=== PATIENT | female | born 1990 | race African-American/Black ===

== ENCOUNTER 2019-09-04 09:07 | Day surgery (SDC) | payer BC, OTHER ==
[2019-09-04 10:00] VITALS: BMI 23.8
--- NOTE | 2019-09-04 10:08 | HP ---
CHIEF COMPLAINT: Here for left foot surgery w/ Dr Qiu--> Bunionectomy with arthroplasty toes 2 and 3. PCP: none HISTORY OF PRESENT ILLNESS: Pt is a 29 y/o f with no past medical history who presents to [facility] for left foot surgery with Dr Qiu. Pt endorses feeling well and denies any health issues at this juncture. PMH none SocialHx- Denies tobacco/Alcohol/or illicit drug use SurgHx- Denies Family History- Mother Lung Cancer [facility] HOME MEDICATIONS: REVIEW OF SYSTEMS CONSTITUTIONAL: Absent: fever, chills, diaphoresis, generalized weakness, malaise, loss of appetite, weight change HEENT: Absent: rhinorrhea, nasal congestion, throat pain, throat swelling, difficulty swallowing, mouth swelling, ear pain, eye pain, visual changes CARDIOVASCULAR: Absent: chest pain, syncope, palpitations, irregular heart rate, lightheadedness , peripheral edema RESPIRATORY: Absent: cough, shortness of breath, dyspnea with exertion, orthopnea, wheezing, stridor, hemoptysis GASTROINTESTINAL: Absent: abdominal pain, abdominal distension, nausea, vomiting, diarrhea, constipation, melena, hematochezia GENITOURINARY: Absent: dysuria, frequency, urgency, hesitancy, hematuria, flank pain, genital pain MUSCULOSKELETAL: Absent: myalgia, arthralgia, joint swelling, back pain, neck pain SKIN: Absent: rash, itching, pallor HEMATOLOGIC/IMMUNOLOGIC: Absent: easy bleeding, easy bruising, lymphadenopathy, frequent infections ENDOCRINE: Absent: unexplained weight gain, unexplained weight loss, heat intolerance, cold intolerance NEUROLOGIC: Absent: headache, focal weakness or paresthesias, dizziness, unsteady gait, seizure, mental status changes, bladder or bowel incontinence PSYCHIATRIC: Absent: anxiety, depression, suicidal or homicidal ideation, hallucinations. PHYSICAL EXAMINATION GENERAL: AAOx3 NAD HEAD: Normal with no signs of trauma. EYES: EOMI, Sclera Clear EARS, NOSE, THROAT: MMM NECK: Supple LUNGS:CTA b/l HEART: RRR S1S2 ABDOMEN: Soft NDNT MUSCULOSKELETAL: FROM throughout LOWER EXTREMITIES: DP 2+ bilaterally. Bunion left foot large toe. Hammertoes left foot digits 2,3,4,5. NEUROLOGICAL: Cranial nerves II-XII intact. Normal speech. PSYCHIATRIC: Cooperative. Good eye contact. Appropriate mood and affect. SKIN: Warm, dry, normal turgor, no rashes or lesions noted, normal capillary refill. ASSESSMENT/PLAN: Pt is a 29 y/o f with no past medical history who presents to [facility] for left foot surgery with Dr Qiu. Pt will undergo above stated surgery with Dr Qiu today. All labs/imaging ordered per Dr Qiu. Will follow patient per surgery request if needed. Visit type - Emergency Visit Emergency Visit: No - New Patient This patient is new to me today: Yes Date on this admission: 09/04/19 - Critical Care Critical Care patient: No
--- NOTE | 2019-09-04 10:27 | PN ---
Teaching Attending Note Name of Resident: Davie Barney ATTENDING PHYSICIAN STATEMENT I saw and evaluated the patient. I reviewed the resident's note and discussed the case with the resident. I agree with the resident's findings and plan as documented. SUBJECTIVE: This is a 29 year old woman with no significant medical history who presents today for left foot bunionectomy. OBJECTIVE: HEART: S1S2, RRR LUNGS: Clear ABDOMEN: Soft, non-tender, non-distended, normal BS EXTREMITIES: No edema, bunion left 1st toe Home Medications Medication Instructions Recorded Calcium Carbonate [Calcium] 500 mg PO DAILY 09/04/19 Ferrous Sulfate [Iron] 325 mg PO DAILY 09/04/19 ASSESSMENT AND PLAN: This is a healthy 29 year old woman with a bunion of her left 1st toe, scheduled to undergo bunionectomy with Dr. Qiu today.
[2019-09-04] MEDS ORDERED: DEXAMETHASONE SOD PHOSPHATE 4 MG/1 ML VIAL ONE (12:03)
[2019-09-04] MEDS ORDERED: PROPOFOL 20 ML ONE ×2 (12:03→12:07)
[2019-09-04] MEDS ORDERED: LIDOCAINE HCL 1%, 10 MG/ML (20ML VIAL) ONE (12:03)
[2019-09-04] MEDS ORDERED: ceFAZolin SODIUM 1 GM VIAL ONE ×2 (12:04→12:40)
[2019-09-04] MEDS ORDERED: MIDAZOLAM HCL 2 MG/2 ML SINGLE DOSE VIAL ONE ×4 (12:04→12:52)
[2019-09-04] MEDS ORDERED: BUPIVACAINE HCL/PF 0.5% (5 MG/ML) 30 ML VIAL IJ ONE ×5 (12:04→12:59)
[2019-09-04] MEDS ORDERED: BACITRACIN 50,000 UNITS VIAL NR ONE ×2 (12:17→12:59)
[2019-09-04] MEDS ORDERED: LIDOCAINE HCL 1%, 10 MG/ML (20ML VIAL) NR ONE ×3 (12:17→12:59)
[2019-09-04] MEDS ORDERED: DEXAMETHASONE SOD PHOSPHATE 4 MG/1 ML VIAL IVPUSH ONE ×3 (12:18→13:30)
[2019-09-04] MEDS ORDERED: ceFAZolin 2 GRAM PREMIX BAG IVPB ONE ×2 (12:41→12:59)
--- NOTE | 2019-09-04 15:48 | OP ---
Operative Note - Note: Operative Date: 09/04/19 Pre-Operative Diagnosis: Painful bunion left foot with hammer toes 2 & 3 left foot Operation: Modified kenney bunionectomy left foot. arthroplasty PIPJ left foot toes 2&3. arthroplasty DIPJ 2nd toe left foot Findings: hypertrophic bone and soft tissue Post-Operative Diagnosis: Same as Pre-op Surgeon: Mahesh Qiu Appellate Conferee: Mark Colindres Anesthesia: Local, MAC Specimens Removed: bone and soft tissue Estimated Blood Loss (mls): 5 Operative Report Dictated: No
[2019-09-04 16:18] VITALS: BP 120/61; PULSE 66; TEMP 97.7
--- NOTE | 2019-09-08 16:47 | PATH ---
Surgical Pathology Report Patient Name: MAINOR HERNANDEZ [facility]. Rec. #: [id number] /Age/Gender: 1990 (Age: 29) / F Account: [id number] Location: [facility] SURGICAL Taken: 09/04/2019 Received: 09/05/2019 Reported: 09/08/2019 Physicians: Mahesh Qiu DPM Specimen(s) Received BONE AND SKIN 2ND AND 3RD TOE LEFT FOOT Clinical History Bunion, hammertoe second and third digit left foot Final Diagnosis BONE AND SKIN SECOND AND THIRD TOE, LEFT FOOT, EXCISION: FRAGMENTS OF BONE WITH FATTY MARROW SHOWING FOCAL DEGENERATIVE CHANGE. SEPARATE FRAGMENTS OF SKIN WITH NO SIGNIFICANT PATHOLOGIC CHANGE. Electronically Signed Sesar Almonte M.D. Gross Description Received in formalin labeled "bone and skin second and third toe left foot," is a 2.8 x 2.0 x 0.3 cm aggregate of romero-yellow bone fragments and brown skin fragments. Jewelry [employer] Model Maker sections are submitted in one cassette, following decalcification. /09/05/[address] [facility]09/05/2019
--- NOTE | 2019-10-06 18:58 | OP ---
DATE OF OPERATION: 09/04/2019 PREOPERATIVE DIAGNOSIS: Painful bunion of the left foot with painful hammertoes 2 and 3, left foot. POSTOPERATIVE DIAGNOSIS: Painful bunion of the left foot with painful hammertoes 2 and 3, left foot. PROCEDURE PERFORMED: Modified Lim bunionectomy, left foot; arthroplasty of the proximal interphalangeal joint, left foot, toes 2 and 3; and arthroplasty of the distal interphalangeal joint of the 2nd toe, left foot. SURGEON: Mahesh Qiu DPM FRAME REPAIRER: Mark Colindres DPM DESCRIPTION OF PROCEDURE: After noting all preoperative vital signs were within normal limits and after the surgical consent was signed and witnessed, the patient was brought to the OR and placed on the table in the supine position. Once the patient was on the table, a well-padded ankle tourniquet was applied to the left ankle. Once the tourniquet was applied, the foot was anesthetized, after the patient had received sedation, in a Campos block fashion around the 1st, 2nd and 3rd metatarsophalangeal joints. Once the foot was anesthetized, it was then prepped and draped in the usual sterile fashion. The foot was then elevated and exsanguinated, and the tourniquet was elevated to 250 mmHg on the left ankle. At this time attention was directed to the left 1st metatarsophalangeal joint where a 6-cm long curvilinear incision was created. The incision was deepened using sharp and blunt dissection to the level of the joint capsule. All unavoidable vessels were ligated in the usual fashion. All other neurovascular structures were retracted out of the surgical site. At this time, an inverted-L incision was created over the 1st metatarsophalangeal joint, exposing the dorsomedial eminence. All soft tissue was then liberated from the dorsal, medial and plantar aspects of the 1st metatarsophalangeal joint. A McGlamry elevator was passed to the plantar aspect to free up the sesamoids. The toe was noted to have good range of motion once this was done. Utilizing a sagittal saw, the dorsomedial eminence was resected and sent down to Pathology. The area was palpated and no remaining spicules were noted. The toe was put through a range of motion and noted to be in excellent alignment , with excellent range of motion. A flush was then done with copiously amounts of sterile saline. Utilizing 2-0 Vicryl in a simple interrupted suture fashion and 3-0 Vicryl in an interrupted suture fashion, the capsular layer was closed. The toe was put through a range of motion and noted to be in excellent alignment, with excellent range of motion. A flush was once again done. Subcutaneous closure was then done using 4-0 Vicryl in an interrupted suture fashion. The skin was closed using 5-0 Vicryl in a subcuticular fashion. Once this was done, attention was directed to the 2nd toe of the left foot. Using 2 converging semi-elliptical incisions over the proximal interphalangeal joint, a wedge of skin was removed and sent down to Pathology. The extensor tendon at this time was transected, going from medial to lateral. All soft tissue was then liberated from the head of the proximal phalanx. Once this was done, utilizing a sagittal saw, going from distal to plantar, the distal 1/3rd of the proximal phalanx was resected and sent down to Pathology. At this time it was noted that the interphalangeal joint had deformity as well. Utilizing a teardrop incision, a wedge of skin was removed and sent down to pathology. The extensor tendon was transected in the distal interphalangeal joint as well. The distal 1/3rd was exposed of the middle phalanx of the 2nd toe. Utilizing a sagittal saw, going from dorsal to plantar, the distal 1/4th of the middle phalanx was resected and sent down to Pathology. The area was palpated. There were no remaining spicules. The extensor tendon was reapproximated after a copious amount of flush with antibiotic irrigation was done in both the proximal interphalangeal joint and the distal interphalangeal joint utilizing 3-0 Vicryl in an interrupted suture fashion in the distal interphalangeal joint and proximal interphalangeal joint. Once this was done, the skin was closed using 4-0 nylon in an interrupted suture fashion on the 2nd toe. Attention was then directed to the 3rd toe of the left foot, where 2 converging semielliptical incisions were created over the proximal interphalangeal joint. A wedge of skin was removed and sent down to Pathology. At this time the extensor tendon was transected from medial to lateral, exposing the head of the proximal phalanx of the 3rd toe. Soft tissue was then liberated from the medial and lateral aspects of the proximal interphalangeal joint. Utilizing a sagittal saw, going from dorsal to plantar, the distal 1/3rd was resected and sent down to Pathology. At this time the area was examined. There were no remaining spicules noted. A flush was then done with copious amounts of sterile saline. The toe was noted to be in excellent alignment. The extensor tendon was reapproximated using 3-0 Vicryl in an interrupted suture fashion. Skin closure was with 4-0 nylon in an interrupted suture fashion. Betadine-soaked Adaptic was placed, after a postoperative injection was put into place. Tincture of benzoin and Steri-Strips were applied to the 1st metatarsophalangeal joint area. Betadine-soaked Adaptic and dry sterile gauze were then utilized. The tourniquet was deflated and capillary filling toe was instantaneous to all 5 toes of the left foot. The patient tolerated the anesthesia and the procedure well. The patient returned to the recovery room with all vital signs stable and neurovascular status intact. HOPE Cox/[id number]
== END 2019-09-04 16:05 | disposition home or self-care (01) ==
LOC: JASU-SURG 09:07
PROVIDERS: ATTEND Podiatrist Foot Surgery
PROC: 0L8W0ZZ Division of Left Foot Tendon, Open Approach (ICD-10-PCS; 2019-09-04)
PROC: 0QBR0ZZ Excision of Left Toe Phalanx, Open Approach (ICD-10-PCS; principal; 2019-09-04 11:30)
PROC: 0SRQ0JZ Replacement of Left Toe Phalangeal Joint with Synthetic Substitute, Open Approach (ICD-10-PCS; 2019-09-04 11:30)
DX: M20.42 Other hammer toe(s) (acquired), left foot (principal); M21.612 Bunion of left foot
CPT/HCPCS: 73630-TC-LT; 81025; 88304-TC; 88311-TC

== ENCOUNTER 2019-09-22 06:52 | Day surgery (SDC) | payer BC, OTHER ==
[2019-09-21 10:58] VITALS: BMI 23.8
[2019-09-22] MEDS ORDERED: ONDANSETRON 4 MG/2 ML VIAL IVPUSH PRN (08:29)
[2019-09-22] MEDS ORDERED: oxyCODONE HCL 5 MG TABLET PO PRN ×2 (08:29)
[2019-09-22] MEDS ORDERED: LACTATED RINGERS SOLUTION 1,000 ML IV SCH (08:30)
[2019-09-22] MEDS ORDERED: PROPOFOL 20 ML ONE ×2 (08:59→10:43)
[2019-09-22] MEDS ORDERED: MIDAZOLAM HCL 2 MG/2 ML SINGLE DOSE VIAL ONE (08:59)
[2019-09-22] MEDS ORDERED: VANCOMYCIN 1,000 MG VIAL (RESTRICTED TO ID ONLY) ONE (09:15)
[2019-09-22] MEDS ORDERED: DEXAMETHASONE SOD PHOSPHATE 4 MG/1 ML VIAL ONE (09:15)
[2019-09-22] MEDS ORDERED: LIDOCAINE HCL 1%, 10 MG/ML (20ML VIAL) ONE (09:15)
[2019-09-22] MEDS ORDERED: BUPIVACAINE HCL/PF 0.5% (5 MG/ML) 30 ML VIAL IJ ONE ×3 (09:16→10:11)
[2019-09-22] MEDS ORDERED: BENZOIN TINCTURE SWABSTICK TP ONE ×2 (09:25→10:55)
[2019-09-22] MEDS ORDERED: ceFAZolin 2 GRAM PREMIX BAG IVPB ONE (09:45)
[2019-09-22] MEDS ORDERED: LIDOCAINE HCL 1%, 10 MG/ML (50 mL VIAL) IJ ONE (10:02)
[2019-09-22] MEDS ORDERED: DEXAMETHASONE SOD PHOSPHATE 4 MG/1 ML VIAL IVPUSH ONE (10:11)
[2019-09-22] MEDS ORDERED: VANCOMYCIN 1,000 MG VIAL (RESTRICTED TO ID ONLY) IVPB ONE (10:27)
[2019-09-22 17:57] VITALS: TEMP 97.8
[2019-09-22 18:08] VITALS: BP 109/69; PULSE 54
--- NOTE | 2019-09-22 23:56 | OP ---
Operative Note - Note: Operative Date: 09/22/19 Pre-Operative Diagnosis: Bunion and hammer toes 2&3 right Operation: Modified Nichols bunionectomy right. Arthroplast PIPJ 2&3 and DIPJ 2 Findings: Hypertrophic bone and soft tissue Post-Operative Diagnosis: Same as Pre-op Surgeon: Mahesh Qiu Global Cmo: Elisabeth Villa Anesthesia: Local, MAC Specimens Removed: bone and skin with soft tissue Estimated Blood Loss (mls): 5 Operative Report Dictated: No
--- NOTE | 2019-09-26 14:26 | PATH ---
Surgical Pathology Report Patient Name: MAINOR HERNANDEZ [facility]. Rec. #: [id number] /Age/Gender: 1990 (Age: 29) / F Account: [id number] Location: [facility] SURGICAL Taken: 09/22/2019 Received: 09/22/2019 Reported: 09/26/2019 Physicians: Mahesh Qiu DPM Specimen(s) Received A: BUNION BONE RIGHT FOOT B: SECOND TOE BONE AND SKIN C: THIRD TOE BONE AND SKIN Clinical History Bunion and hammer toes right foot Final Diagnosis A. BUNION BONE, FOOT, RIGHT, BUNIONECTOMY: BONE WITH DEGENERATIVE CHANGES AND BENIGN DENSE FIBROCONNECTIVE TISSUE. B. BONE AND SKIN, SECOND TOE, HAMMER TOE CORRECTION: BONE WITH DEGENERATIVE CHANGES AND FATTY MARROW. SKIN WITHOUT SIGNIFICANT PATHOLOGIC FINDINGS. C. BONE AND SKIN, THIRD TOE, HAMMER TOE CORRECTION: BONE WITH DEGENERATIVE CHANGES AND FATTY MARROW. SKIN WITHOUT SIGNIFICANT PATHOLOGIC FINDINGS. Electronically Signed Samra Blum M.D. Gross Description A. Received in formalin labeled "bunion bone right foot," are 3 romero-yellow portions of bone ranging from 0.9 x 0.5 x 0.1 cm to 1.5 x 1.1 x 0.3 cm. Cashier sections are submitted in one cassette, following decalcification. B. Received in formalin labeled "second toe bone and skin," are 3 romero-yellow portions of bone ranging from 0.4 x 0.3 x 0.2 cm to 1.0 x 0.6 x 0.4 cm. Also received within the same container are 2 brown, elliptical skin shaves measuring 0.9 x 0.4 cm and 1.4 x 0.4 cm. The epidermal surfaces are unremarkable. Cashier sections are submitted in one cassette, following decalcification. C. Received in formalin labeled "third toe bone and skin," is a 0.9 x 0.5 x 0.5 cm romero-yellow portion of bone. Also received within the same container is a 1.3 x 0.4 cm brown, unoriented skin shave. The epidermal surface is unremarkable. Cashier sections are submitted in one cassette, following decalcification. DL/09/25/2019 [place]09/25/2019
--- NOTE | 2019-10-06 18:58 | OP ---
DATE OF OPERATION: 09/22/2019 SURGEON: Mahesh Qiu DPM DRY STARCH OPERATOR: Mark Colindres DPM PREOPERATIVE DIAGNOSIS: Painful bunion, right foot, with hammertoes 2 and 3, right foot. PROCEDURE: Modified Lim bunionectomy, right foot, and arthroplasty of the proximal interphalangeal joint , toes 2 and 3, right foot. PROCEDURE DETAILS: After noting all preoperative vital signs within normal limits and after the surgical consent was signed and witnessed, the patient was brought to the OR, placed on the table in a supine position. An IV line had been started prior to the patient coming to the OR. Once the patient was on the table, the patient was sedated and local infiltrate was given in a Campos block fashion around the 1st, 2nd, and 3rd metatarsophalangeal joints of the right foot. Once the anesthesia was placed, the foot was then prepped and draped in the usual sterile fashion. A well-padded ankle tourniquet had been applied prior to the prep and drape. The foot was then elevated and exsanguinated, and the tourniquet was elevated to 250 mmHg on the right side. Attention was then directed to the 1st metatarsophalangeal joint, where a 6-cm long curvilinear incision was created. This incision was deepened using sharp and blunt dissection to the level of the joint capsule. All unavoidable vessels were ligated in the usual fashion. All other neurovascular structures were retracted out of the surgical site. At this time, an inverted-L capsulotomy was created, exposing the dorsal medial eminence. All soft tissue was liberated from the dorsal, plantar, and medial aspect. A McGlamry elevator was then passed, freeing up the sesamoids on the plantar aspect of the first metatarsophalangeal joint. The toe was put through a range of motion and noted to be with good range of motion. At this time, utilizing a sagittal saw, the dorsal medial eminence was resected. The specimen was sent down to Pathology. A rotary osteotome bur was then utilized to remodel the head of the 1st metatarsal. A flush was then done with copious amounts of sterile saline that had antibiotic added to it. Once this was done, the capsule was reapproximated using 2-0 Vicryl and 3-0 Vicryl were utilized for capsular closure, 4-0 Vicryl was utilized for subcutaneous closure, and 5-0 Vicryl in a subcuticular closure for skin. Attention was then directed to the 2nd and 3rd toes of the right foot, where 2 converging semielliptical incisions were created over the proximal interphalangeal joint. These incisions were deepened using sharp and blunt dissection, and a wedge of skin was removed and sent down to Pathology. Once the wedge of skin was removed, the extensor tendon was then transected from medial to lateral, exposing the head of the proximal interphalangeal joint. Once the head of the proximal interphalangeal joint was exposed, soft tissue was liberated in the medial and lateral aspect of both toes 2 and 3. Once this was done, a sagittal saw was utilized going from dorsal to plantar to resect the distal third of the proximal interphalangeal joint of toes 2 and 3 of the right foot. These specimens were removed from the table and sent down to Pathology. Attention was then directed to the 2nd toe of the right foot distal interphalangeal joint, where it was noted to have a deformity. Utilizing a teardrop incision, a wedge of skin was removed and sent down to Pathology. Once this was done, the extensor tendon was transected at the distal interphalangeal joint going from medial to lateral, exposing the head of the middle phalanx. Soft tissue was then liberated from the medial and lateral aspect of the head of the middle phalanx. Utilizing a sagittal saw, the distal quarter of the middle phalanx was resected and sent down to Pathology. The toe at this time was noted to be in good alignment. A flush was then done with copious amounts of sterile saline that had antibiotic added to it. Once this was done, 3-0 Vicryl was then utilized to reapproximate the extensor tendon in a simple interrupted suture fashion, both on toes 2 and 3, and of the 2nd distal interphalangeal joint, 3-0 Vicryl was utilized for the extensor tendon repair there. At this time, skin was then closed on both toes 2 and 3 on all incisions using 4-0 nylon in a simple interrupted suture fashion. Tincture of benzoin and Steri-Strips were applied to the 1st metatarsophalangeal joint area. Betadine-soaked Adaptic, dry sterile gauze, and a Cristal dressing were then applied to the incision sites after the postoperative injection was put into place. Tourniquet was deflated and capillary filling time was instantaneous to all 5 toes of the right foot. Patient tolerated the anesthesia and the procedure well. Patient returned to recovery room with vital signs stable and vascular status intact. HOPE Cox/[id number]
== END 2019-09-22 14:30 | disposition home or self-care (01) ==
LOC: JASU-SURG 06:52
PROVIDERS: ATTEND Podiatrist Foot Surgery
PROC: 0SRP0JZ Replacement of Right Toe Phalangeal Joint with Synthetic Substitute, Open Approach (ICD-10-PCS; principal; 2019-09-22 09:00)
PROC: 0QBQ0ZZ Excision of Right Toe Phalanx, Open Approach (ICD-10-PCS; 2019-09-22 09:00)
DX: M20.41 Other hammer toe(s) (acquired), right foot (principal); M20.11 Hallux valgus (acquired), right foot
CPT/HCPCS: 73630-TC-RT-FY; 84703; 88304-TC; 88311-TC; 94760